=== PATIENT | male | born 1985 | race Asian ===

== ENCOUNTER 2018-01-16 21:21 | Emergency (ER) | payer OTHER ==
[2018-01-16 21:35] VITALS: BP 150/86; PULSE 81; RESP 18; TEMP 98.1
--- NOTE | 2018-01-16 21:46 | ED ---
General Adult HPI - General Chief complaint: Extremity Injury, Lower Stated complaint: fall/foot swelling Time Seen by Provider: 01/16/18 21:40 Source: patient, RN notes reviewed Mode of arrival: wheelchair Limitations: physical limitation - History of Present Illness Initial comments: Patient is a pleasant 32-year-old male presenting to the emergency Department with complaints of left foot pain. Patient was walking up steps prior to arrival. Patient fell back after he stepped wrong on the upper step. Patient had sudden pain of his left midfoot. Discomfort persists since that time. Discomfort increases with ambulation and touch and movement. No other area of injury or concern. No history of chronic foot problems. patient has noticed some swelling. - Related Data Previous Rx's Medication Instructions Recorded Acetaminophen-Codeine 300-30mg 1 each PO Q6H PRN #18 tablet 12/27/14 [Tylenol #3] Ibuprofen [Motrin] 800 mg PO Q8HR #30 tab 12/27/14 Omeprazole [PriLOSEC] 20 mg PO AC-BID #60 cap 08/06/16 Hydrocodone/Acetaminophen [Barksdale 1 each PO Q4HR PRN #15 tab 01/16/18 5-325] Allergies Allergy/AdvReac Type Severity Reaction Status Date / Time No Known Allergies Allergy Verified 12/27/14 09:44 Review of Systems ROS Statement: Those systems with pertinent positive or pertinent negative responses have been documented in the HPI. ROS Other: All systems not noted in ROS Statement are negative. Constitutional: Denies: fever Eyes: Denies: eye pain ENT: Denies: ear pain Respiratory: Denies: cough, dyspnea Cardiovascular: Denies: chest pain Gastrointestinal: Denies: abdominal pain Musculoskeletal: Denies: back pain Skin: Denies: rash Neurological: Denies: weakness Past Medical History Past Medical History: Asthma History of Any Multi-Drug Resistant Organisms: None Reported Past Surgical History: Orthopedic Surgery Additional Past Surgical History / Comment(s): Right ACL Past Psychological History: No Psychological Hx Reported Smoking Status: Current every day smoker Past Alcohol Use History: Occasional Past Drug Use History: Marijuana General Exam Limitations: physical limitation General appearance: alert, in no apparent distress Head exam: Present: atraumatic Eye exam: Present: normal appearance Neck exam: Present: normal inspection. Absent: tenderness Respiratory exam: Present: normal lung sounds bilaterally Cardiovascular Exam: Present: regular rate, normal rhythm Expanded Peripheral pulses: 2+: Posterior Tibialis (L), Dorsalis Pedis (L) GI/Abdominal exam: Present: soft. Absent: tenderness Extremities exam: Present: tenderness (Left medial midfoot with mild to moderate tenderness and mild swelling. Distally the extremity is neurovascularly intact.). Absent: calf tenderness Neurological exam: Present: alert. Absent: motor sensory deficit Psychiatric exam: Present: normal affect, normal mood Skin exam: Present: normal color Course Vital Signs 01/16/18 21:31 Temperature 98.1 F Pulse Rate 81 Respiratory 18 Rate Blood Pressure 150/86 O2 Sat by Pulse 98 Oximetry Procedures - Orthopedic Splinting/Casting Injury #1 Side: left Lower Extremity Injury Location: short leg, foot Lower Extremity Immobilizer: posterior splint Additional Comments: Examined postplacement with good alignment and neurovascularly intact. Medical Decision Making - Medical Decision Making Patient reevaluated and updated. Case was discussed in detail with Dr. Charles who does recommend computed tomography scan of the foot and follow-up with Dr. Sung in the office and splint. Patient was updated. Patient updated specifically for no weightbearing. - Radiology Data Radiology results: image reviewed (Fracture dislocation at the proximal first metatarsal) Disposition Clinical Impression: Metatarsal fracture Disposition: HOME SELF-CARE Instructions: Foot Fracture in Adults (ED) Additional Instructions: Use crutches, prescription provided. No weightbearing left foot. Follow-up tomorrow with Dr. Sung, phone number provided. Return for increased pain, swelling, foot problems, worsening symptoms or other concerns. Ice to affected area. Prescriptions: Hydrocodone/Acetaminophen [Barksdale 5-325] 1 each PO Q4HR PRN #15 tab PRN Reason: Pain Is patient prescribed a controlled substance at d/c from ED?: Yes When asked, does pt state using other controlled substances?: No Referrals: Robbi Sung MD [Medical Doctor] - 1-2 days Time of Disposition: 22:29
--- NOTE | 2018-01-16 22:00 | XR ---
PROCEDURE: XR foot complete LT 3 views DATE AND TIME: 01/16/2018 9:54 PM REFERRING PHYSICIAN: Kang Castle DO CLINICAL INDICATION: PHH, Pain after injury TECHNIQUE: Department protocol. COMPARISON: None FINDINGS: There is a fracture/dislocation involving the base of the first metatarsal at the first met atarsal-tarsal articulation. Further characterization with CT can be complimentary. IMPRESSION: Fracture/dislocation at the first MTT joint.
[2018-01-16] MEDS ORDERED: HYDROcodone/APAP 5-325MG 1 EACH TAB PO STA ×2 (22:33→22:46)
--- NOTE | 2018-01-16 22:46 | CT ---
EXAMINATION TYPE: CT foot LT wo con DATE OF EXAM: 01/16/2018 COMPARISON: NONE HISTORY: Left foot injury today. CT DLP: 256.7 mGycm Automated exposure control for dose reduction was used. FINDINGS: There is an impacted intra-articular fracture of the base of the first metatarsal. There is also an a nterior dislocation of the first tarsometatarsal joint. There is nondisplaced transverse fracture of the base of the second metatarsal. The cuneiform bones appear intact. There is significant comminutio n of the first metatarsal fracture. The hindfoot appears intact. Ankle mortise is anatomic. IMPRESSION: NONDISPLACED FRACTURE OF THE BASE OF THE SECOND METATARSAL. ANTERIOR COMMINUTED FRACTURE DISLOCATION OF THE FIRST TARSOMETATARSAL JOINT.
== END 2018-01-16 22:55 | disposition home or self-care (01) ==
LOC: EC 21:21
DX: S92.312A Displaced fracture of first metatarsal bone, left foot, initial encounter for closed fracture (principal); F17.200 Nicotine dependence, unspecified, uncomplicated; W01.0XXA Fall on same level from slipping, tripping and stumbling without subsequent striking against object, initial encounter; Y93.01 Activity, walking, marching and hiking
CPT/HCPCS: 29515; 99284

== ENCOUNTER 2018-01-30 08:42 | Day surgery (SDC) | payer OTHER ==
[2018-01-29 10:57] VITALS: BMI 25.8
[~2018-01-30 08:42] MED LIST: DEXAMETHASONE SOD PHOSPHATE 10 MG/ML 1 ML VIAL IV ONE; HYDROmorphone 0.5 MG/0.5 ML SYRINGE IVP PRN; LACTATED RINGERS 1,000 ML IV SCH; LIDOCAINE 1% 20 ML VIAL (10MG/ML) FOR IV START INTRADERMA PRN; MIDAZOLAM 2 MG/2 ML VIAL IV PRN; MORPHINE SULFATE 2 MG/ML SYRINGE IV PRN; ONDANSETRON 4 MG/2 ML VIAL IVP ONE; SCOPOLAMINE 1.5MG/72HR PATCH TRANSDERM ONE; ceFAZolin IN SWFI 2 GM/20 ML SYRINGE IVP ONE
[2018-01-30] MEDS ORDERED: SUCCINYLCHOLINE CHLORIDE 100 MG/5 ML SYR IV ONE (11:36)
[2018-01-30] MEDS ORDERED: KETAMINE 10 MG/ML 20 ML VIAL ONE (11:36)
[2018-01-30] MEDS ORDERED: PROPOFOL 10 MG/ML 20 ML VIAL IV ONE (11:36)
[2018-01-30] MEDS ORDERED: LIDOCAINE 1% INJ 10MG/ML (20 ML MDV) ONE (11:36)
[2018-01-30] MEDS ORDERED: HYDROmorphone (PF) 1 MG/ML ONE (11:36)
[2018-01-30] MEDS ORDERED: MIDAZOLAM 2 MG/2 ML VIAL ONE (11:36)
[2018-01-30] MEDS ORDERED: ALBUTEROL INHALER 60 PUFF/8 GM INHALER INHALATION ONE (11:36)
[2018-01-30] MEDS ORDERED: fentaNYL (PF) 50 MCG/ML 2 ML AMP ONE (11:36)
[2018-01-30] MEDS ORDERED: ceFAZolin 1,000 MG in SODIUM CHLORIDE 0.9% 1,000 ML IRRIGATION ONE (12:01)
[2018-01-30] MEDS ORDERED: LACTATED RINGERS 1,000 ML IV ONE (12:14)
[2018-01-30] MEDS ORDERED: hydrOXYzine PAMOATE 25 MG CAP PO PRN (13:59)
[2018-01-30] MEDS ORDERED: PROCHLORPERAZINE SUPPOSITORY 25 MG SUPP RECTAL PRN (13:59)
[2018-01-30] MEDS ORDERED: ONDANSETRON 4 MG/2 ML VIAL IVP PRN (13:59)
[2018-01-30] MEDS ORDERED: MORPHINE SULFATE 4 MG/ML SYRINGE IVP PRN ×3 (13:59)
[2018-01-30] MEDS ORDERED: TEMAZEPAM 15 MG CAP PO PRN (13:59)
[2018-01-30] MEDS ORDERED: diphenhydrAMINE 25 MG CAP PO PRN (13:59)
[2018-01-30] MEDS ORDERED: METOCLOPRAMIDE 5 MG/ML 2 ML VIAL IVP PRN (13:59)
[2018-01-30] MEDS ORDERED: LACTATED RINGERS 1,000 ML IV SCH (14:00)
[2018-01-30] MEDS ORDERED: HYDROcodone/APAP 10-325MG 1 EACH TAB PO PRN ×2 (14:01)
[2018-01-30 14:15] VITALS: RESP 16; TEMP 97.9
--- NOTE | 2018-01-30 14:39 | XR ---
Limited left foot HISTORY: Fracture, open reduction internal fixation 6 intraoperative C-arm images document the procedure.
--- NOTE | 2018-01-30 14:40 | FL ---
Fluoroscopy HISTORY: Open reduction internal fixation left ankle 1 minute 38 seconds fluoroscopy time supplied to the referring clinician. 6 intraoperative C-arm coretta ges document the procedure. See dictated report from orthopedic surgery.
[2018-01-30 15:09] VITALS: BP 148/84; PULSE 78
[2018-01-30] MEDS ORDERED: ceFAZolin IN SWFI 2 GM/20 ML SYRINGE IVP SCH (16:00)
[2018-01-30] MEDS ORDERED: ASPIRIN 325 MG TAB PO SCH (21:00)
--- NOTE | 2018-02-01 08:46 | OP ---
OPERATIVE REPORT DATE OF SURGERY: 01/30/2018 PREOPERATIVE DIAGNOSES: 1. Closed left medial column Lisfranc fracture dislocation. 2. Left first metatarsal base fracture. 3. Left second metatarsal base fracture. 4. Left medial cuneiform fracture. 5. Current everyday cigarette smoker. POSTOPERATIVE DIAGNOSES: 1. Closed left medial column Lisfranc fracture dislocation. 2. Left first metatarsal base fracture. 3. Left second metatarsal base fracture. 4. Left medial cuneiform fracture. 5. Current everyday cigarette smoker. PROCEDURE: 1. Open reduction and internal fixation of left medial column Lisfranc fracture dislocation. 2. Open reduction of first and second tarsometatarsal joint dislocation. 3. Open reduction and internal fixation of left medial cuneiform fracture. 4. Application of short-leg splint by physician. SURGEON: Dr. Robbi uSng. OPERATING ROOM REGISTERED NURSE: Raul CASTANON (Raul CASTANON was required as a skilled retail event and sales assistant due to the complexity of the case for patient positioning, surgical exposure, reduction of fracture, placement of hardware, closure of wound and application of splint). ANESTHESIA: General plus popliteal and saphenous nerve block. FLUIDS: 1000 mL crystalloid. BLOOD LOSS: Less than 10 mL. TOURNIQUET TIME: 75 minutes. INDICATION: The patient is a very pleasant 32-year-old male with a medical history significant for smoking up to 1 pack of cigarettes a day. He sustained an injury to his left foot resulting in a comminuted first metatarsal base fracture dislocation and widening of the Lisfranc joint. He had x-rays and a CT scan. I met with the patient preoperatively to discuss treatment. We discussed both open reduction and internal fixation versus a primary fusion. Due to the patient's young age and smoking status, I recommended an open reduction and internal fixation. The patient understands the potential risks for this. He understands the potential for ongoing pain, development of posttraumatic arthritis and difficulty with ambulation. We had a lengthy discussion of all the potential risks and complications including, but not limited to risk of anesthesia, risk of superficial infection, risk of deep infection, risk of delayed wound healing, risk of superficial wound necrosis, risk of fracture nonunion, risk of fracture malunion, risk of malreduction of the Lisfranc joint, risk of posttraumatic arthritis, risk of chronic pain, risk of chronic swelling, risk of inability to regain pre-injury level of function, risk of need for further surgery including a midfoot fusion, risk of DVT, risk of PE, and other less common complications. The patient voiced his understanding of all these complications and also acknowledges the risk for other less common complications. He also acknowledges that he is at a significantly higher risk of having a complication due to his current smoking status. He provided his verbal and written consent to go forward with surgery. DESCRIPTION OF PROCEDURE: The patient was identified in preoperative holding and the correct left foot was marked with my initials. I reviewed the consent form and my surgical plan with the patient, his mom and florencee. All their questions were answered. A popliteal and saphenous nerve block was placed by Anesthesia. The patient was then brought back to the operating room. He was positioned on the OR table. A general anesthetic and preoperative antibiotics were administered. The tourniquet was applied to the proximal aspect of the left thigh. All bony prominences were well padded. A bump was placed under the left buttock internally rotating the leg to neutral. The patient's left leg was then prepped and draped in the standard sterile fashion. Prior to starting surgery, a timeout was performed identifying the correct patient, operative extremity, and procedure. The patient's leg was then elevated, exsanguinated with an Esmarch bandage, and the tourniquet was inflated to 250 mmHg. I began by outlining a longitudinal incision centered over the first tarsometatarsal joint in the 1-2 intermetatarsal space. Skin incision was made with a 15 blade scalpel. Dissection was carried down carefully through the subcutaneous tissue with tenotomy scissors. Crossing veins were controlled with electrocautery. A crossing branch of the superficial peroneal nerve was identified and carefully retracted. The periosteum and capsule over the first and second tarsometatarsal joint was elevated. Immediately upon elevating the capsule, the dislocated first tarsometatarsal joint was identified. There were multiple small fragments between the base of the second metatarsal and medial cuneiform. There was also a large dorsal fracture off of the medial cuneiform. K-wires were placed medially in the first metatarsal and cuneiform. A lamina pari mutuel ticket cashier was used to help regain length and reduce the first tarsometatarsal joint. Small osteochondral fragments that were too small to secure fixation across were debrided from the joint to help facilitate reduction. Once the joint was anatomically reduced and out to length, a 0.0625 K-wire was placed peripherally from the first metatarsal base across the medial cuneiform to hold the reduction. The large dorsal medial cuneiform fracture was then debrided of early consolidating hematoma and anatomically reduced into place and held with a 0.045 K-wire. To hold this large fragment, a 2.0 mm lag screw was placed across it. A 2.0 mm drill bit was used to create a gliding hole in the dorsal cortex of the fragment and a 1.5 mm drill bit was used to create a threaded hole in the body of the medial cuneiform. A fully threaded 2.0 mm lag screw was placed across this fragment generating excellent compression and reduction. A precontoured tarsometatarsal plate was then placed dorsally over the first tarsometatarsal joint to hold the joint out to length. The plate was positioned on the bone until it sat flush. The position of the plate was verified using fluoroscopy. Once the plate was adequately positioned, it was held in place with olive tipped K-wires. Nonlocking screws were placed proximally and distally to hold the plate down to bone. I then placed locking screws both proximally and distally. Finally, the most distal nonlocking screw was changed out for a locking screw. I verified position of the hardware as well as reduction of the first tarsometatarsal joint in all views. Attention was then turned to the second metatarsal base. The second metatarsal base was debrided of loose osteochondral fragments. A large [id number] reduction clamp was placed with one claudio over the lateral base of the second metatarsal and the other claudio over the medial cuneiform. The clamp was gently tightened until the second metatarsal base appeared to be anatomically reduced within its mortise. Clinically, the joint appeared reduced. The reduction was verified with fluoroscopy. A 2.5 mm drill bit was used to create a path from the medial cortex of the medial cuneiform across the Lisfranc joint into the second metatarsal base. A fully-threaded solid 3.5 mm screw was placed. The clamp was removed and the reduction held. Final fluoroscopic images were taken including an AP, oblique and lateral view. The Lisfranc joints appeared to be reduced. The hardware appeared to be in acceptable place. The wound was then copiously irrigated. The capsule over the first tarsometatarsal joint was closed with a running 0 Vicryl. The deep subcutaneous was reapproximated using 3-0 Monocryl. The skin was closed using 3-0 nylon horizontal mattress stitches. I verified that all instrument, sponge, and sharp counts were correct. A sterile dressing consisting of Betadine-soaked Adaptic, Webril, and 4 x 4 was placed. The tourniquet was let down with the total tourniquet time of 75 minutes. Once the drapes were taken off, a well-padded bulky Castle splint was placed with the ankle in neutral. The patient was then woken from his anesthetic, transferred from the operating room table to a gurney and brought to PACU having tolerated the procedure well. PLAN: The patient is going to be strictly nonweightbearing in a splint. He was given prescriptions for pain medication, Colace, and a stool softener. If the patient's pain is adequately controlled, he can discharge home as an outpatient. He will follow up in the office in 2 weeks for splint removal, x-rays out of the splint and likely transition to a tall Cam boot or cast. MMODL / IJN: [id number] /
== END 2018-01-30 15:18 | disposition home or self-care (01) ==
LOC: OR 08:42
PROVIDERS: ATTEND Orthopaedic Surgery
DX: S93.325A Dislocation of tarsometatarsal joint of left foot, initial encounter (principal); S92.312A Displaced fracture of first metatarsal bone, left foot, initial encounter for closed fracture; S92.322A Displaced fracture of second metatarsal bone, left foot, initial encounter for closed fracture; S92.242A Displaced fracture of medial cuneiform of left foot, initial encounter for closed fracture; F17.210 Nicotine dependence, cigarettes, uncomplicated; J45.909 Unspecified asthma, uncomplicated; K21.9 Gastro-esophageal reflux disease without esophagitis; W10.9XXA Fall (on) (from) unspecified stairs and steps, initial encounter; Z88.5 Allergy status to narcotic agent; Z79.899 Other long term (current) drug therapy
CPT/HCPCS: 73630; 28485 ×4; J2250; J1100; J2405; J0690 ×2; J2001; J3010; J1170; J0330; J2704

== ENCOUNTER 2018-07-03 09:46 | Day surgery (SDC) | payer OTHER ==
[2018-06-26 16:19] VITALS: BMI 25.8
[~2018-07-03 09:46] MED LIST changes: -MORPHINE SULFATE 2 MG/ML SYRINGE IV PRN
--- NOTE | 2018-07-03 13:18 | P.ONQ ---
Anesthesiology Proc Note - PNB - Peripheral Nerve Block Performed Left Popliteal Single Time Out Performed: Yes Procedure Start Time: 11:15 Procedure Stop Time: :20 Sedation Type: Sedate with meaningful contact maintained Preparation: Sterile Prep Position: Supine Catheter: None Needle Types: Genesis Needle Size: 50mm (2") Needle Gauge: 21 Technique: Ultrasound Injectate: 0.5% Ropivacaine (see comment for volume) Blood Aspirated: No Pain Paresthesia on Injection Noted: No Resistance on Injection: Normal Events: Uneventful and Well Tolerated
[2018-07-03] MEDS ORDERED: KETOROLAC 30 MG/ML 1 ML VIAL ONE (13:50)
[2018-07-03] MEDS ORDERED: MIDAZOLAM 2 MG/2 ML VIAL ONE (13:50)
[2018-07-03] MEDS ORDERED: LIDOCAINE 1% INJ 10MG/ML (20 ML MDV) ONE (13:50)
[2018-07-03] MEDS ORDERED: ROPIVACAINE 5 MG/ML 30 ML VIAL ONE (13:50)
[2018-07-03] MEDS ORDERED: PROPOFOL 10 MG/ML 20 ML VIAL IV ONE (13:50)
[2018-07-03] MEDS ORDERED: fentaNYL (PF) 50 MCG/ML 2 ML AMP ONE (13:50)
[2018-07-03] MEDS ORDERED: LACTATED RINGERS 1,000 ML IV ONE (14:15)
[2018-07-03] MEDS ORDERED: LACTATED RINGERS 1,000 ML IV SCH (15:00)
[2018-07-03] MEDS ORDERED: HYDROcodone/APAP 5-325MG 1 EACH TAB PO PRN ×2 (15:00)
[2018-07-03] MEDS ORDERED: HYDROmorphone 0.5 MG/0.5 ML SYRINGE IVP PRN (15:00)
[2018-07-03] MEDS ORDERED: ONDANSETRON 4 MG/2 ML VIAL IVP PRN (15:00)
[2018-07-03] MEDS ORDERED: HYDROmorphone 1 MG/ML 1 ML SYRINGE IVP PRN ×2 (15:00→15:11)
[2018-07-03 15:02] VITALS: TEMP 97.3
--- NOTE | 2018-07-03 15:09 | XR ---
EXAMINATION TYPE: XR foot complete LT, FL guidance operating room DATE OF EXAM: 07/03/2018 CLINICAL HISTORY: Eructating left foot hardware. TECHNIQUE: Fluoroscopy. Limited intraoperative views left foot. COMPARISON: Intraoperative foot x-rays January 30, 2018.. FINDINGS: Fluoroscopic guidance was provided during removal of metallic surgical hardware procedure performed by Dr. Sung. A total of 11 seconds of fluoroscopic time was utilized during the proced ure and 3 spot fluoroscopic intraoperative images are acquired. Images acquired show removal of dorsa l fixating plate and fixating screws there are first toe with 2 residual screw fragments in the media l or middle cuneiform. IMPRESSION: As Above.
[2018-07-03 15:51] VITALS: PULSE 57
[2018-07-03 16:04] VITALS: BP 132/82; RESP 18
--- NOTE | 2018-07-03 17:56 | OP ---
OPERATIVE REPORT DATE OF SURGERY: 07/03/2018 PREOPERATIVE DIAGNOSES: 1. Left medial column Lisfranc injury, status post open reduction, internal fixation. 2. History of everyday cigarette smoker. POSTOPERATIVE DIAGNOSES: 1. Left medial column Lisfranc injury, status post open reduction, internal fixation. 2. History of everyday cigarette smoker. PROCEDURE: 1. Left foot hardware removal, deep. 2. Manual application of stress by physician, left foot. SURGEON: Dr. Robbi Sung BANKING SUPERVISOR: None. ANESTHESIA: General plus popliteal and saphenous nerve block. FLUIDS: 700 mL crystalloid. BLOOD LOSS: 10 mL. TOURNIQUET TIME: 24 minutes. INDICATION: The patient is a very pleasant 32-year-old male who sustained a medial column Lisfranc injury with a fracture dislocation of the first tarsometatarsal joint. He previously underwent open reduction, internal fixation. The patient had both clinical and radiographic evidence of healing. He broke several of his screws. We discussed removing the hardware. He agreed to this and requested hardware removal. We discussed the potential risks and complications of surgery, including but not limited to risk of anesthesia, risk of superficial infection, risk of deep infection, risk of damage to local blood vessels or nerves, risk of post-traumatic arthritis, risk of postoperative displacement requiring further surgery, including a midfoot fusion, risk of chronic pain, risk of chronic swelling, risk of an inability to regain pre-injury level of function, risk of damage to local blood vessels or nerves, risk of DVT, risk of PE, risk of other medical complications and possibly loss of life or limb. The patient voiced his understanding of this and also acknowledged the fact that there are other less common complications possible. He provided his verbal and written consent to go forward with surgery. DESCRIPTION OF THE PROCEDURE: The patient was identified in Preoperative Holding and the correct left foot was marked with my initials. I reviewed the consent form with the patient and his significant other. All of their questions were answered. The patient was given a popliteal and saphenous nerve block by Anesthesia. He was brought back to the operating room. He was positioned on the OR table, where a general anesthetic and preoperative antibiotics were administered. A tourniquet was applied to the proximal aspect of the left thigh. A bump was placed under the left buttock internally rotating the leg to neutral. The right leg was secured to the table with foam and tape. The left leg was then prepped and draped in standard sterile fashion. Prior to starting surgery, timeout was performed identifying the correct patient, operative extremity and procedure. The patient's leg was then elevated, exsanguinated with an Esmarch bandage and the tourniquet was inflated to 250 mmHg. I began by outlining the scar in the first interspace. Skin incision was made with a scalpel and dissection was carried down carefully through the subcutaneous tissue with tenotomy scissors. The EHL tendon sheath was identified and incised. The EHL tendon was then retracted medially. I immediately came down on the dorsal plate and screws. The plate was circumferentially exposed and the hardware was then removed. Two of the screws were broken. I then removed the home-run Lisfranc screw and the small fragment screw in the medial cuneiform. Final fluoroscopic images were taken, including a true AP, oblique and lateral view of the foot. A manual abduction stress x-ray was performed of the mid foot and showed no instability of the first tarsometatarsal joint or of the Lisfranc ligament. The wound was copiously irrigated and closed in layers. The tourniquet was let down. A sterile dressing consisting of Betadine-soaked Adaptic, 4 x 4 and Webril was applied. The patient was then placed in a boot. He was woken from his anesthetic and transferred to the PACU, having tolerated the procedure well. DEREK / JEAN: [id number] /
== END 2018-07-03 16:20 | disposition home or self-care (01) ==
LOC: OR 09:46
PROVIDERS: ATTEND Orthopaedic Surgery
DX: T84.84XA Pain due to internal orthopedic prosthetic devices, implants and grafts, initial encounter (principal); Z48.89 Encounter for other specified surgical aftercare; S93.326A Dislocation of tarsometatarsal joint of unspecified foot, initial encounter; F17.210 Nicotine dependence, cigarettes, uncomplicated; J45.909 Unspecified asthma, uncomplicated; K21.9 Gastro-esophageal reflux disease without esophagitis; Z79.891 Long term (current) use of opiate analgesic; Z79.1 Long term (current) use of non-steroidal anti-inflammatories (NSAID); Z79.899 Other long term (current) drug therapy; Z88.5 Allergy status to narcotic agent
CPT/HCPCS: 73630; 20680; J2250; J1100; J2405; J2001; J3010; J1885; J2795; J2704; J0690

== ENCOUNTER 2019-08-04 08:01 | Emergency (ER) | payer OTHER ==
[2019-08-04 08:08] VITALS: TEMP 97.9
[2019-08-04] MEDS ORDERED: KETOROLAC 30 MG/ML 1 ML VIAL IVP STA (08:15)
[2019-08-04] MEDS ORDERED: ONDANSETRON 4 MG/2 ML VIAL IVP STA (08:15)
--- NOTE | 2019-08-04 08:17 | ED ---
General Adult HPI - General Chief complaint: Abdominal Pain Stated complaint: Flank/back pain Time Seen by Provider: 08/04/19 08:11 Source: patient Mode of arrival: ambulatory Limitations: no limitations - History of Present Illness Initial comments: 34-year-old male yo male with no significant past medical history presenting to the emergency department for chief complaint of left-sided flank pain that radiates towards the left groin. Patient states that he has left flank pain that began this morning. He states it radiates towards her groin. He states it fluctuates in intensity and becomes very severe and sharp. Patient denies known history of kidney stones. He denies noting any hematuria. Patient denies fever abdominal pain. Patient states as a dull ache in the left testicle he states however the pain does not originate there is mostly in the left flank. Patient states the testicles are not tender to touch. Denies abx allergies or other complaints. Patient appears uncomfortable upon arrival holding the left flank. - Related Data Home Medications Medication Instructions Recorded Confirmed Albuterol Inhaler [Ventolin Hfa 1 - 2 puff INHALATION RT-Q6H PRN 01/29/18 07/03/18 Inhaler] Ibuprofen [Motrin] 800 mg PO Q8HR PRN 01/29/18 06/26/18 Previous Rx's Medication Instructions Recorded Omeprazole [PriLOSEC] 20 mg PO AC-BID #60 cap 08/06/16 Aspirin 325 mg PO BID #28 tab 07/03/18 Ketorolac [Toradol] 10 mg PO Q8HR PRN 3 Days #9 tab 08/04/19 Ondansetron Odt [Zofran Odt] 4 mg PO Q8HR PRN 5 Days #15 tab 08/04/19 Allergies Allergy/AdvReac Type Severity Reaction Status Date / Time tramadol Allergy SEIZURE Verified 08/04/19 08:06 Review of Systems ROS Statement: Those systems with pertinent positive or pertinent negative responses have been documented in the HPI. ROS Other: All systems not noted in ROS Statement are negative. Past Medical History Past Medical History: Asthma, GERD/Reflux Additional Past Medical History / Comment(s): FRACTURE OF LEFT FOOT History of Any Multi-Drug Resistant Organisms: None Reported Past Surgical History: Orthopedic Surgery Additional Past Surgical History / Comment(s): Right ACL, left foot, egd for "food stuck" Past Anesthesia/Blood Transfusion Reactions: No Reported Reaction Past Psychological History: No Psychological Hx Reported Smoking Status: Current every day smoker Past Alcohol Use History: Rare Past Drug Use History: Marijuana - Past Family History Mother Family Medical History: No Reported History General Exam - General Exam Comments Initial Comments: General: The patient is awake and alert, grabbing left flank in discomfort Eye: Pupils are equal, round and reactive to light, extra-ocular movements are intact. No nystagmus. There is normal conjunctiva bilaterally. No signs of icterus. Cardiovascular: There is a regular rate and rhythm. No murmur, rub or gallop is appreciated. Respiratory: Lungs are clear to auscultation, respirations are non-labored, breath sounds are equal. No wheezes, stridor, rales, or rhonchi. Gastrointestinal: Soft, non-distended, non-tender abdomen without masses or organomegaly noted. There is no rebound or guarding present. No CVA tenderness. Bowel sounds are unremarkable. Musculoskeletal: Normal ROM, no tenderness. Strength 5/5. Sensation intact. Radial pulses equal bilaterally 2+. Neurological: A&O x 3. CN II-XII intact grossly, There are no obvious motor or sensory deficits. Coordination appears grossly intact. Speech is normal. Skin: Skin is warm and dry and no rashes or lesions are noted. Psychiatric: Cooperative, appropriate mood & affect, normal judgment. Limitations: no limitations Course Vital Signs 08/04/19 08/04/19 08:06 09:32 Temperature 97.9 F Pulse Rate 90 80 Respiratory 18 16 Rate Blood Pressure 150/75 150/70 O2 Sat by Pulse 99 98 Oximetry - Reevaluation(s) Reevaluation #1: after administration of Toradol patient states the pain is resolved. 08/04/19 09:00 Medical Decision Making - Medical Decision Making 34-year-old male presents for chief complaint of left flank pain. His family history of kidney stones. CT revealed multiple right-sided nephrolithiasis. patient has no hydronephrosis however hematuria was present. Patient states he did feel slightly better prior to Toradol administration after he had urinated. Possibility of passed stone. Given complete resolution of patient's symptoms I feel that most secondary diagnosis is kidney stone. Patient has a benign abdominal exam. Denies any testicular pain. Return parameters importance of urology. With discussed and patient was discharged appearing well after discussing case with attending provider - Lab Data Result diagrams: 08/04/19 08:30 08/04/19 08:30 Lab Results 08/04/19 08/04/19 08/04/19 Range/Units 08:30 08:30 08:30 WBC 6.0 (3.8-10.6) k/uL RBC 5.08 (4.30-5.90) m/uL Hgb 15.9 (13.0-17.5) gm/dL Hct 43.8 (39.0-53.0) % MCV 86.2 (80.0-100.0) fL MCH 31.2 (25.0-35.0) pg MCHC 36.2 (31.0-37.0) g/dL RDW 12.3 (11.5-15.5) % Plt Count 260 (150-450) k/uL Neutrophils % 42 % Lymphocytes % 37 % Monocytes % 10 % Eosinophils % 8 % Basophils % 1 % Neutrophils # 2.5 (1.3-7.7) k/uL Lymphocytes # 2.2 (1.0-4.8) k/uL Monocytes # 0.6 (0-1.0) k/uL Eosinophils # 0.5 (0-0.7) k/uL Basophils # 0.1 (0-0.2) k/uL Sodium 140 (137-145) mmol/L Potassium 3.8 (3.5-5.1) mmol/L Chloride 110 H (98-107) mmol/L Carbon Dioxide 20 L (22-30) mmol/L Anion Gap 10 mmol/L BUN 11 (9-20) mg/dL Creatinine 0.82 (0.66-1.25) mg/dL Est GFR (CKD-EPI)AfAm >90 (>60 ml/min/1.73 sqM) Est GFR (CKD-EPI)NonAf >90 (>60 ml/min/1.73 sqM) Glucose 125 H (74-99) mg/dL Calcium 9.3 (8.4-10.2) mg/dL Total Bilirubin 0.8 (0.2-1.3) mg/dL AST 29 (17-59) U/L ALT 46 (21-72) U/L Alkaline Phosphatase 67 (38-126) U/L Total Protein 7.0 (6.3-8.2) g/dL Albumin 3.9 (3.5-5.0) g/dL Urine Color Yellow Urine Appearance Clear (Clear) Urine pH 6.0 (5.0-8.0) Ur Specific [place] 1.013 (1.001-1.035) Urine Protein Negative (Negative) Urine Glucose (UA) Negative (Negative) Urine Ketones Negative (Negative) Urine Blood Moderate H (Negative) Urine Nitrite Negative (Negative) Urine Bilirubin Negative (Negative) Urine Urobilinogen <2.0 (<2.0) mg/dL Ur Leukocyte Esterase Negative (Negative) Urine RBC 20 H (0-5) /hpf Urine WBC 5 (0-5) /hpf Urine Bacteria Rare H (None) /hpf Disposition Clinical Impression: Hematuria, Left flank pain Disposition: HOME SELF-CARE Condition: Good Instructions (If sedation given, give patient instructions): Kidney Stones (ED) Additional Instructions: Please use medication as discussed. Please follow-up with family doctor in the next 2 days, urology in next week. Please return to emergency room if the symptoms increase or worsen or for any other concerns. Prescriptions: Ketorolac [Toradol] 10 mg PO Q8HR PRN 3 Days #9 tab PRN Reason: Severe Pain Ondansetron Odt [Zofran Odt] 4 mg PO Q8HR PRN 5 Days #15 tab PRN Reason: Nausea Is patient prescribed a controlled substance at d/c from ED?: No Referrals: None,Stated [Primary Care Provider] - 1-2 days Junior Gutierrez MD [STAFF PHYSICIAN] - As Soon As Possible Time of Disposition: 09:30
[2019-08-04 09:02] LABS: Appearance,Urine Clear (Clear); Bilirubin,Urine Negative (Negative); Blood,Urine Moderate (Negative); Color,Urine Yellow; Glucose,Urine (UA) Negative (Negative); Ketones,Urine Negative (Negative); Leukocyte Esterase,Urine Negative (Negative); Nitrite,Urine Negative (Negative); Protein,Urine Negative (Negative); Specific Gravity,Urine 1.013 (1.001-1.035); Urobilinogen,Urine <2.0 mg/dL (<2.0)
[2019-08-04 09:06] LABS: Albumin 3.9 g/dL (3.5-5.0); Chloride 110 mmol/L (98-107); Glucose 125 mg/dL (74-99); Potassium 3.8 mmol/L (3.5-5.1); Sodium 140 mmol/L (137-145)
[2019-08-04 09:07] LABS: ALT 46 U/L (21-72); AST 29 U/L (17-59); African American GFR (CKD) >90 (>60 ml/min/1.73 sqM); Alkaline Phosphatase 67 U/L (38-126); Anion Gap 10 mmol/L; Blood Urea Nitrogen 11 mg/dL (9-20); Calcium 9.3 mg/dL (8.4-10.2); Carbon Dioxide 20 mmol/L (22-30); Non-African American GFR(CKD) >90 (>60 ml/min/1.73 sqM); Total Bilirubin 0.8 mg/dL (0.2-1.3)
[2019-08-04 09:11] LABS: Basophils # (A) 0.1 k/uL (0-0.2); Basophils % (A) 1 %; Eosinophils # (A) 0.5 k/uL (0-0.7); Eosinophils % (A) 8 %; HCT 43.8 % (39.0-53.0); HGB 15.9 gm/dL (13.0-17.5); Lymphocytes # (A) 2.2 k/uL (1.0-4.8); Lymphocytes % (A) 37 %; MCH 31.2 pg (25.0-35.0); MCHC 36.2 g/dL (31.0-37.0); MCV 86.2 fL (80.0-100.0); Mean Platelet Volume 6.5; Monocytes # (A) 0.6 k/uL (0-1.0); Monocytes % (A) 10 %; Neutrophils # (A) 2.5 k/uL (1.3-7.7); Neutrophils % (A) 42 %; Platelet Count 260 k/uL (150-450); RBC 5.08 m/uL (4.30-5.90); RDW 12.3 % (11.5-15.5)
--- NOTE | 2019-08-04 09:26 | CT ---
EXAMINATION TYPE: CT abdomen pelvis wo con DATE OF EXAM: 08/04/2019 COMPARISON: None HISTORY: Left sided pain CT DLP: 433.7 mGycm Automated exposure control for dose reduction was used. TECHNIQUE: Helical acquisition of images was performed from the lung bases through the pelvis. FINDINGS: LUNG BASES: Millimeters solid pulmonary nodule seen in the anterior left lower lobe on series 204 coretta ge 111. Linear possible pleural parenchymal scarring versus 3 mm pleural-based nodule is seen on imag e 20 in the right lower lobe laterally. LIVER/GB: Liver is slightly enlarged extending to the iliac crest. No CT evidence of hepatic steatosi s. Unenhanced attenuation is within normal limits. PANCREAS: No ductal dilatation seen. SPLEEN: No splenomegaly. ADRENALS: No significant abnormality is seen. KIDNEYS: 1 mm nonobstructing right midpole calculus is seen on image 56. Additional 1 mm right lower pole calculus is also seen on the right on image 65. Few clustered (approximately 3 in #1 mm calculi in the right upper pole on image 45 and 44. Punctate phlebolith is seen lateral to the left ureterove sicular junction and prostate gland calcification centrally. No calculus along the course of the left ureter is seen. No urinary bladder calculi. FREE AIR: No free air is visualized ADENOPATHY: Limited evaluation for adenopathy given the lack of intravenous and oral contrast. No gr ossly abnormal greater than 1 cm short axis lymph node is seen in the abdomen or pelvis. OSSEOUS STRUCTURES: No significant abnormality is seen. BOWEL: Appendix is air-filled and retrocecal, within normal limits of size. No periappendiceal fat s tranding. Moderate degree colonic fecal stasis. No dilated large or small bowel. Some high density wi thin the transverse and descending colon relates to ingested substance. IMPRESSION: 1. MULTIPLE NONOBSTRUCTING PUNCTATE RIGHT RENAL CALCULI. NO LEFT-SIDED RENAL CALCULI NOR OBSTRUCTIVE UROPATHY SEEN. 2. MODERATE DEGREE COLONIC FECAL STASIS. THERE IS SOMEWHAT SUBOPTIMAL EVALUATION OF THE DISTAL BOWEL GIVEN PAUCITY OF INTRA-ABDOMINAL FAT AND LACK OF ORAL CONTRAST HOWEVER NO GROSS EVIDENCE OF COLITIS N OR BOWEL OBSTRUCTION IS SEEN.
[2019-08-04 09:34] VITALS: BP 150/70; PULSE 80; RESP 16
[2019-08-04 09:41] LABS: Bacteria,Urine Rare /hpf; RBC,Urine 20 /hpf (0-5); WBC,Urine 5 /hpf (0-5)
== END 2019-08-04 09:36 | disposition home or self-care (01) ==
LOC: EC 08:01
DX: R10.32 Left lower quadrant pain (principal); R31.9 Hematuria, unspecified; N20.0 Calculus of kidney; N50.812 Left testicular pain; J45.909 Unspecified asthma, uncomplicated; F17.200 Nicotine dependence, unspecified, uncomplicated; Z88.5 Allergy status to narcotic agent; Z79.899 Other long term (current) drug therapy; Z84.1 Family history of disorders of kidney and ureter
CPT/HCPCS: 36415; 80053; 85025; 81001; 74176; 99284; 96374; 96375; J2405; J1885

== ENCOUNTER 2020-04-20 17:41 | Emergency (ER) | payer OTHER ==
[2020-04-20 17:51] VITALS: BP 150/85; PULSE 97; RESP 21; TEMP 97.9
--- NOTE | 2020-04-20 18:00 | ED ---
Medical Clearance HPI - General Chief complaint: Medical Clearance Stated complaint: Clearance Time Seen by Provider: 04/20/20 17:52 Source: police, RN notes reviewed Mode of arrival: ambulatory - History of Present Illness Initial comments: 34-year-old male presents emergency Department with police for retirement clearance. Patient reportedly took have Vicodin, methamphetamine use yesterday, Adderall use. Patient no physical complaints. Patient is awake alert and orientated. Patient denies any IV drug use denies any alcohol use today. Patient has no physical trauma. Home medications: Home Medications Medication Instructions Recorded Confirmed Albuterol Inhaler (Mhu) [Ventolin 1 - 2 puff INHALATION RT-Q6H PRN 01/29/18 07/03/18 Hfa Inhaler] Ibuprofen [Motrin] 800 mg PO Q8HR PRN 01/29/18 06/26/18 Previous Rx's Medication Instructions Recorded Omeprazole [PriLOSEC] 20 mg PO AC-BID #60 cap 08/06/16 Aspirin 325 mg PO BID #28 tab 07/03/18 Ketorolac [Toradol] 10 mg PO Q8HR PRN 3 Days #9 tab 08/04/19 Ondansetron Odt [Zofran Odt] 4 mg PO Q8HR PRN 5 Days #15 tab 08/04/19 Allergies/Adverse reactions: Allergies Allergy/AdvReac Type Severity Reaction Status Date / Time tramadol Allergy SEIZURE Verified 08/04/19 08:06 Review of Systems ROS Statement: Those systems with pertinent positive or pertinent negative responses have been documented in the HPI. ROS Other: All systems not noted in ROS Statement are negative. Past Medical History Past Medical History: Asthma, GERD/Reflux Additional Past Medical History / Comment(s): FRACTURE OF LEFT FOOT History of Any Multi-Drug Resistant Organisms: None Reported Past Surgical History: Orthopedic Surgery Additional Past Surgical History / Comment(s): Right ACL, left foot, egd for "food stuck" Past Anesthesia/Blood Transfusion Reactions: No Reported Reaction Past Psychological History: No Psychological Hx Reported Smoking Status: Current every day smoker Past Alcohol Use History: Rare Past Drug Use History: Marijuana, Methamphetamine, Opiates - Past Family History Mother Family Medical History: No Reported History General Exam Limitations: no limitations General appearance: alert, in no apparent distress Head exam: Present: atraumatic, normocephalic, normal inspection Eye exam: Present: normal appearance, PERRL, EOMI. Absent: scleral icterus, conjunctival injection, periorbital swelling ENT exam: Present: mucous membranes moist, TM's normal bilaterally, normal external ear exam. Absent: normal exam, normal oropharynx (Edentulous) Neck exam: Present: normal inspection, full ROM. Absent: tenderness, meningismus, lymphadenopathy Respiratory exam: Present: normal lung sounds bilaterally. Absent: respiratory distress, wheezes, rales, rhonchi, stridor Cardiovascular Exam: Present: regular rate, normal rhythm, normal heart sounds. Absent: systolic murmur, diastolic murmur, rubs, gallop, clicks Neurological exam: Present: alert, oriented X3, CN II-XII intact Skin exam: Present: warm, dry, intact, normal color. Absent: rash Course Vital Signs 04/20/20 17:48 Temperature 97.9 F Pulse Rate 97 Respiratory 21 Rate Blood Pressure 150/85 O2 Sat by Pulse 97 Oximetry Medical Decision Making - Medical Decision Making 34-year-old male presented for retirement clearance he is awake alert and oriented is no signs distress vitals are stable he did admit to drug use though he is not lethargic or obtunded at this time. Patient will be discharged to police custody. Disposition Clinical Impression: Medical clearance for incarceration Disposition: HOME SELF-CARE Condition: Stable Instructions (If sedation given, give patient instructions): Medical Clearance for Substance Abuse Treatment (ED) Additional Instructions: Please return to the Emergency Department if symptoms worsen or any other concerns. Is patient prescribed a controlled substance at d/c from ED?: No Referrals: Eder Ruggiero MD [Primary Care Provider] - 1-2 days Time of Disposition: 18:00
== END 2020-04-20 18:10 | disposition home or self-care (01) ==
LOC: EC 17:41
DX: Z00.8 Encounter for other general examination (principal); J45.909 Unspecified asthma, uncomplicated; F17.200 Nicotine dependence, unspecified, uncomplicated; Z88.5 Allergy status to narcotic agent
CPT/HCPCS: 99283

== ENCOUNTER → 2020-06-09 | Outpatient (CLI) | payer OTHER ==
--- NOTE | 2020-06-10 09:27 | CT ---
EXAMINATION TYPE: CT chest wo con DATE OF EXAM: 06/09/2020 COMPARISON: None HISTORY: Lung nodule CT DLP: 168.2 mGycm, Automated exposure control for dose reduction was used. CONTRAST: Performed injected with 0 mL of Isovue 300. TECHNIQUE: Axial images were obtained at 5 mm thick sections. Reconstructed images are reviewed on [employer] computer in the coronal plane. FINDINGS: Portion of the thyroid visualized is normal. There is a 0.4 cm nodule in the periphery of the left lower lobe. Series 4 image 48. There is a small linear opacity measuring 0.3 cm in width extending to the peripheral margin of the right lower lobe. Series 4 image 45. No enlarged mediastinal or hilar adenopathy is evident. The ascending aorta diameter at the level o f the main pulmonary artery is 3.1 cm. The main pulmonary artery diameter at the bifurcation is 2.[address] sections are obtained through the upper abdomen. Abdomen is essentially unremarkable. IMPRESSIONS: 1. Stable 0.4 cm nodule left lower lobe. Linear opacity at the right lung base likewise appears stabl e. Follow-up CT chest exam in one year is recommended.
== END | disposition home or self-care (01) ==
LOC: RADCTMAIN 11:30
PROVIDERS: ATTEND Internal Medicine Sleep Medicine
DX: R91.1 Solitary pulmonary nodule (principal)
CPT/HCPCS: 71250

== ENCOUNTER 2020-09-27 22:26 | Emergency (ER) | payer OTHER ==
[2020-09-27 22:37] VITALS: BP 152/95; PULSE 110; RESP 18; TEMP 98.5
--- NOTE | 2020-09-27 22:58 | ED ---
Psych HPI - General Chief Complaint: Psychiatric Symptoms Stated Complaint: Mental health Time Seen by Provider: 09/27/20 22:36 Source: patient, RN notes reviewed, old records reviewed Mode of arrival: ambulatory - History of Present Illness Initial Comments: This is a 35-year-old male DF for evaluation patient has a for suicidal evaluation psychiatric illness secondary to recent stressor, breakup. Denying drug or alcohol. Patient does have some history of psychiatric illness, patient until follow-up depression and grief. MD Complaint: suicidal ideation, feels depressed -: days(s) Associated Psychiatric Symptoms: depression, suicidal ideation History of same: Yes Quality: constant Improves With: none Worsens With: none Associated Symptoms: denies other symptoms Treatments Prior to Arrival: none If Self Harm: admits thoughts of self harm - Related Data Home Medications Medication Instructions Recorded Confirmed Escitalopram Oxalate [Lexapro] 10 mg PO DAILY 09/27/20 09/27/20 Allergies Allergy/AdvReac Type Severity Reaction Status Date / Time tramadol Allergy SEIZURE Verified 09/27/20 23:32 Review of Systems ROS Statement: Those systems with pertinent positive or pertinent negative responses have been documented in the HPI. ROS Other: All systems not noted in ROS Statement are negative. Past Medical History Past Medical History: Asthma, GERD/Reflux Additional Past Medical History / Comment(s): FRACTURE OF LEFT FOOT History of Any Multi-Drug Resistant Organisms: None Reported Past Surgical History: Orthopedic Surgery Additional Past Surgical History / Comment(s): Right ACL, left foot, egd for "food stuck" Past Anesthesia/Blood Transfusion Reactions: No Reported Reaction Past Psychological History: No Psychological Hx Reported Smoking Status: Current every day smoker Past Alcohol Use History: Rare Past Drug Use History: Marijuana, Methamphetamine, Opiates - Past Family History Mother Family Medical History: No Reported History General Exam Limitations: no limitations General appearance: alert, in no apparent distress Head exam: Present: atraumatic, normocephalic, normal inspection Eye exam: Present: normal appearance, PERRL, EOMI. Absent: scleral icterus, conjunctival injection, periorbital swelling ENT exam: Present: normal exam, mucous membranes moist Neck exam: Present: normal inspection. Absent: tenderness, meningismus, lymphadenopathy Respiratory exam: Present: normal lung sounds bilaterally. Absent: respiratory distress, wheezes, rales, rhonchi, stridor Cardiovascular Exam: Present: regular rate, normal rhythm, normal heart sounds. Absent: systolic murmur, diastolic murmur, rubs, gallop, clicks GI/Abdominal exam: Present: soft, normal bowel sounds. Absent: distended, tenderness, guarding, rebound, rigid Extremities exam: Present: normal inspection, full ROM, normal capillary refill. Absent: tenderness, pedal edema, joint swelling, calf tenderness Back exam: Present: normal inspection Neurological exam: Present: alert, oriented X3, CN II-XII intact Psychiatric exam: Present: normal affect, normal mood Skin exam: Present: warm, dry, intact, normal color. Absent: rash Course Vital Signs 09/27/20 22:30 Temperature 98.5 F Pulse Rate 110 H Respiratory 18 Rate Blood Pressure 152/95 O2 Sat by Pulse 98 Oximetry - Reevaluation(s) Reevaluation #1: 09/28/20 01:35 Medical record is reviewed Medically clear for psychiatric evaluation Reevaluation #2: 09/28/20 01:36 Patient seen eval by psychiatry dequan for discharge home it is safety plan Medical Decision Making - Medical Decision Making Lasix male for grief reaction stress reaction secondary to recent breakup. Patient does consent safety and can be discharged home - Lab Data Lab Results 09/27/20 Range/Units 23:10 Urine Color Light Yellow Urine Appearance Clear (Clear) Urine pH 6.0 (5.0-8.0) Ur Specific [place] 1.003 (1.001-1.035) Urine Protein Negative (Negative) Urine Glucose (UA) Negative (Negative) Urine Ketones Negative (Negative) Urine Blood Negative (Negative) Urine Nitrite Negative (Negative) Urine Bilirubin Negative (Negative) Urine Urobilinogen <2.0 (<2.0) mg/dL Ur Leukocyte Esterase Negative (Negative) Urine Opiates Screen Not Detected (NotDetected) Ur Oxycodone Screen Not Detected (NotDetected) Urine Methadone Screen Not Detected (NotDetected) Ur Propoxyphene Screen Not Detected (NotDetected) Ur Barbiturates Screen Not Detected (NotDetected) U Tricyclic Antidepress Not Detected (NotDetected) Ur Phencyclidine Scrn Not Detected (NotDetected) Ur Amphetamines Screen Detected H (NotDetected) U Methamphetamines Scrn Detected H (NotDetected) U Benzodiazepines Scrn Not Detected (NotDetected) Urine Cocaine Screen Not Detected (NotDetected) U Marijuana (THC) Screen Not Detected (NotDetected) Disposition Clinical Impression: Suicidal ideation, Depression, Grief Disposition: ADMITTED IP TO THIS HOSP Condition: Fair Instructions (If sedation given, give patient instructions): Grief and Loss (ED) Is patient prescribed a controlled substance at d/c from ED?: No Referrals: Eder Ruggiero MD [Primary Care Provider] - 1-2 days
[2020-09-27 23:46] LABS: Appearance,Urine Clear (Clear); Bilirubin,Urine Negative (Negative); Blood,Urine Negative (Negative); Color,Urine Light Yellow; Glucose,Urine (UA) Negative (Negative); Ketones,Urine Negative (Negative); Leukocyte Esterase,Urine Negative (Negative); Nitrite,Urine Negative (Negative); Protein,Urine Negative (Negative); Specific Gravity,Urine 1.003 (1.001-1.035); Urobilinogen,Urine <2.0 mg/dL (<2.0)
[2020-09-28] LABS: Amphetamine Screen,Urine Detected (NotDetected); Barbiturate Screen,Urine Not Detected (NotDetected); Benzodiazepines Screen,Urine Not Detected (NotDetected); Cocaine Screen,Urine Not Detected (NotDetected); Methadone Screen, Urine Not Detected (NotDetected); Opiate Screen,Urine Not Detected (NotDetected); Oxycodone Screen, Urine Not Detected (NotDetected); Phencyclidine Screen,Urine Not Detected (NotDetected); Tricyclic Antidepressant,Urine Not Detected (NotDetected); Urn Cannabinoid Scrn Not Detected (NotDetected)
== END 2020-09-28 01:48 | disposition other institution (70) ==
LOC: EC 22:26
DX: F43.21 Adjustment disorder with depressed mood (principal); F32.9 Major depressive disorder, single episode, unspecified; F17.200 Nicotine dependence, unspecified, uncomplicated; Z88.6 Allergy status to analgesic agent
CPT/HCPCS: 80306; 81003; 82075; 99285

== ENCOUNTER 2020-11-04 06:51 | Emergency (ER) | payer OTHER ==
[2020-11-04 06:56] VITALS: BP 134/75; PULSE 115; RESP 20; TEMP 97.9
--- NOTE | 2020-11-04 07:22 | ED ---
General Adult HPI - General Chief complaint: Anxiety Stated complaint: Anxiety Time Seen by Provider: 11/04/20 06:56 Source: patient, RN notes reviewed Mode of arrival: ambulatory Limitations: no limitations - History of Present Illness Initial comments: 35-year-old male with a past medical history of asthma, GERD presents to the emergency room for a chief complaint of anxiety. Patient states that in the past 6 months he has had a lot of changes in his life. States that he got in trouble with the law and his fianc broke up with him. Patient states that he has been started on Lexapro by his primary care provider and this has been increased and it has been helping immensely. Patient reports that he does counseling at [facility]. Patient states that this morning he started to have a panic attack. Started feeling his heart race and felt dizzy. This made him even more anxious obviously. His mom wanted him to come to the hospital. Patient states on his walk over he felt much better. States panic attack has subsided. He feels relaxed now and is ready to go to work at the [employer]. States he likes going to work and this will help him as well. Patient denies any thoughts of harming himself or suicide. States he has a 12-year-old son that needs him.Patient has no other complaints at this time including shortness of breath, chest pain, abdominal pain, nausea or vomiting, headache, or visual changes. - Related Data Home Medications Medication Instructions Recorded Confirmed Escitalopram Oxalate [Lexapro] 10 mg PO DAILY 09/27/20 09/27/20 Allergies Allergy/AdvReac Type Severity Reaction Status Date / Time tramadol Allergy SEIZURE Verified 11/04/20 06:56 Review of Systems ROS Statement: Those systems with pertinent positive or pertinent negative responses have been documented in the HPI. ROS Other: All systems not noted in ROS Statement are negative. Past Medical History Past Medical History: Asthma, GERD/Reflux Additional Past Medical History / Comment(s): FRACTURE OF LEFT FOOT History of Any Multi-Drug Resistant Organisms: None Reported Past Surgical History: Orthopedic Surgery Additional Past Surgical History / Comment(s): Right ACL, left foot, egd for "food stuck" Past Anesthesia/Blood Transfusion Reactions: No Reported Reaction Past Psychological History: No Psychological Hx Reported Smoking Status: Current every day smoker Past Alcohol Use History: Rare Past Drug Use History: Marijuana, Methamphetamine, Opiates - Past Family History Mother Family Medical History: No Reported History General Exam Limitations: no limitations General appearance: alert, in no apparent distress Head exam: Present: atraumatic, normocephalic, normal inspection Eye exam: Present: normal appearance, PERRL, EOMI. Absent: scleral icterus ENT exam: Present: normal exam, mucous membranes moist Neck exam: Present: normal inspection, full ROM. Absent: tenderness Respiratory exam: Present: normal lung sounds bilaterally. Absent: respiratory distress, wheezes Cardiovascular Exam: Present: regular rate, normal rhythm, normal heart sounds GI/Abdominal exam: Present: soft, normal bowel sounds. Absent: distended, tenderness Neurological exam: Present: alert Course Vital Signs 11/04/20 06:54 Temperature 97.9 F Pulse Rate 115 H Respiratory 20 Rate Blood Pressure 134/75 O2 Sat by Pulse 96 Oximetry Medical Decision Making - Medical Decision Making Vitals are stable. Patient sightly tachycardic likely secondary to anxiety as he is fidgeting. Patient states his anxiety however has significantly improved since his walk to the hospital. She states he only came because he was having a panic attack however that has completely resolved. He said once he got here he thought he might as well get his vitals checked but wants to be discharged to go to work. States he enjoys his job. States he has a counseling appointment at 1. Adamantly denies any suicidal or homicidal thoughts. He will follow up with his primary care provider. He will return here for any worsening symptoms. Disposition Clinical Impression: Acute anxiety Disposition: HOME SELF-CARE Condition: Good Instructions (If sedation given, give patient instructions): Generalized Anxiety Disorder (ED) Additional Instructions: Please attend your counseling appointment at 1. Please follow up with primary care in 1-2 days. Continue to take your medications. Return to the emergency room for any worsening symptoms. Is patient prescribed a controlled substance at d/c from ED?: No Referrals: Eder Ruggiero MD [Primary Care Provider] - 1-2 days Time of Disposition: 07:30
== END 2020-11-04 07:40 | disposition home or self-care (01) ==
LOC: EC 06:51
DX: F41.9 Anxiety disorder, unspecified (principal); F17.200 Nicotine dependence, unspecified, uncomplicated; Z79.899 Other long term (current) drug therapy; Z88.5 Allergy status to narcotic agent
CPT/HCPCS: 99283

== ENCOUNTER 2020-11-06 22:28 | Emergency (ER) | payer OTHER ==
[2020-11-06 22:34] VITALS: BP 173/93; PULSE 92; RESP 20; TEMP 98.1
--- NOTE | 2020-11-06 23:00 | ED ---
Psych HPI - General Chief Complaint: Psychiatric Symptoms Stated Complaint: Mental Health Time Seen by Provider: 11/06/20 22:36 Source: patient Mode of arrival: ambulatory - History of Present Illness Initial Comments: Patient is a 35-year-old man who presents with complaint that she is having racing thoughts and depression in relation to a number of life stresses. The patient states that symptoms have been seeming to be worse for about a week or so. He denies clarice suicidal ideation, but states he is having difficulty sleeping and he is having racing thoughts. MD Complaint: feels depressed Onset/Timin -: week(s) Associated Psychiatric Symptoms: depression, racing thoughts History of same: Yes Quality: changing over time Improves With: none Worsens With: other Context: significant life stressor Associated Symptoms: insomnia - Related Data Home Medications Medication Instructions Recorded Confirmed Escitalopram Oxalate [Lexapro] 10 mg PO DAILY 09/27/20 09/27/20 Allergies Allergy/AdvReac Type Severity Reaction Status Date / Time tramadol Allergy SEIZURE Verified 11/06/20 22:33 Review of Systems ROS Statement: Those systems with pertinent positive or pertinent negative responses have been documented in the HPI. ROS Other: All systems not noted in ROS Statement are negative. Constitutional: Denies: fever, chills Respiratory: Denies: cough, dyspnea Cardiovascular: Denies: chest pain, palpitations, syncope Gastrointestinal: Denies: abdominal pain, nausea, vomiting Genitourinary: Denies: dysuria, hematuria Musculoskeletal: Denies: back pain Skin: Denies: rash Neurological: Denies: headache, weakness, numbness Psychiatric: Reports: anxiety, depression. Denies: auditory hallucinations, visual hallucinations, homicidal thoughts, suicidal thoughts Past Medical History Past Medical History: Asthma, GERD/Reflux Additional Past Medical History / Comment(s): FRACTURE OF LEFT FOOT History of Any Multi-Drug Resistant Organisms: None Reported Past Surgical History: Orthopedic Surgery Additional Past Surgical History / Comment(s): Right ACL, left foot, egd for "food stuck" Past Anesthesia/Blood Transfusion Reactions: No Reported Reaction Past Psychological History: Anxiety, Depression Smoking Status: Current every day smoker Past Alcohol Use History: None Reported Past Drug Use History: Marijuana, Methamphetamine, Opiates - Past Family History Mother Family Medical History: No Reported History General Exam Limitations: no limitations General appearance: alert, in no apparent distress Head exam: Present: atraumatic, normocephalic Eye exam: Present: normal appearance. Absent: scleral icterus, conjunctival injection ENT exam: Present: normal oropharynx Neck exam: Present: normal inspection Respiratory exam: Present: normal lung sounds bilaterally. Absent: respiratory distress, wheezes, rales, rhonchi, stridor Cardiovascular Exam: Present: regular rate, normal rhythm, normal heart sounds. Absent: systolic murmur, diastolic murmur, rubs, gallop GI/Abdominal exam: Present: soft. Absent: distended, tenderness, guarding, rebound, rigid, mass Extremities exam: Present: normal inspection, normal capillary refill. Absent: pedal edema, calf tenderness Back exam: Present: normal inspection. Absent: CVA tenderness (R), CVA tenderness (L) Neurological exam: Present: alert, normal gait Psychiatric exam: Present: anxious. Absent: depressed, agitated, flat affect, manic, homicidal ideation, suicidal ideation Skin exam: Present: warm, dry, intact, normal color. Absent: rash Course Vital Signs 11/06/20 22:29 Temperature 98.1 F Pulse Rate 92 Respiratory 20 Rate Blood Pressure 173/93 O2 Sat by Pulse 97 Oximetry Medical Decision Making - Lab Data Lab Results 11/06/20 Range/Units 23:12 Urine Opiates Screen Not Detected (NotDetected) Ur Oxycodone Screen Not Detected (NotDetected) Urine Methadone Screen Not Detected (NotDetected) Ur Propoxyphene Screen Not Detected (NotDetected) Ur Barbiturates Screen Not Detected (NotDetected) U Tricyclic Antidepress Not Detected (NotDetected) Ur Phencyclidine Scrn Not Detected (NotDetected) Ur Amphetamines Screen Detected H (NotDetected) U Methamphetamines Scrn Detected H (NotDetected) U Benzodiazepines Scrn Not Detected (NotDetected) Urine Cocaine Screen Not Detected (NotDetected) U Marijuana (THC) Screen Not Detected (NotDetected) Disposition Clinical Impression: Mood disorder Disposition: HOME SELF-CARE Condition: Good Instructions (If sedation given, give patient instructions): Mood Disorders (ED) Is patient prescribed a controlled substance at d/c from ED?: No Referrals: Eder Ruggiero MD [Primary Care Provider] - 1-2 days
[2020-11-06 23:27] LABS: Amphetamine Screen,Urine Detected (NotDetected); Barbiturate Screen,Urine Not Detected (NotDetected); Benzodiazepines Screen,Urine Not Detected (NotDetected); Cocaine Screen,Urine Not Detected (NotDetected); Methadone Screen, Urine Not Detected (NotDetected); Opiate Screen,Urine Not Detected (NotDetected); Oxycodone Screen, Urine Not Detected (NotDetected); Phencyclidine Screen,Urine Not Detected (NotDetected); Tricyclic Antidepressant,Urine Not Detected (NotDetected); Urn Cannabinoid Scrn Not Detected (NotDetected)
== END 2020-11-07 01:22 | disposition home or self-care (01) ==
LOC: EC 22:28
DX: F39 Unspecified mood [affective] disorder (principal); F41.9 Anxiety disorder, unspecified; F32.9 Major depressive disorder, single episode, unspecified; F17.200 Nicotine dependence, unspecified, uncomplicated; Z79.899 Other long term (current) drug therapy; Z88.6 Allergy status to analgesic agent
CPT/HCPCS: 80306; 82075; 99284

== ENCOUNTER 2020-11-08 14:00 | Emergency (ER) | payer OTHER ==
[2020-11-08 14:12] VITALS: BP 130/100; PULSE 85; RESP 18; TEMP 98
--- NOTE | 2020-11-08 15:55 | ED ---
Psych HPI - General Chief Complaint: Psychiatric Symptoms Stated Complaint: Mental health Time Seen by Provider: 11/08/20 14:13 Source: patient, RN notes reviewed Mode of arrival: ambulatory Limitations: no limitations - History of Present Illness Initial Comments: 35 year old male presents emergency Department for psychiatric evaluation patient states he was just here recently for evaluation. Patient states his anxiety is worse. Patient does have a history of methamphetamine and marijuana abuse. Patient states that he has been sober for 90 days. Patient states that he's had a lateral lead changes recently which making his anxiety bother him. Patient denies being suicidal or homicidal. Patient offers no other complaints. - Related Data Home Medications Medication Instructions Recorded Confirmed Escitalopram Oxalate [Lexapro] 10 mg PO DAILY 09/27/20 09/27/20 Allergies Allergy/AdvReac Type Severity Reaction Status Date / Time tramadol Allergy SEIZURE Verified 11/08/20 14:12 Review of Systems ROS Statement: Those systems with pertinent positive or pertinent negative responses have been documented in the HPI. ROS Other: All systems not noted in ROS Statement are negative. Past Medical History Past Medical History: Asthma, GERD/Reflux Additional Past Medical History / Comment(s): FRACTURE OF LEFT FOOT History of Any Multi-Drug Resistant Organisms: None Reported Past Surgical History: Orthopedic Surgery Additional Past Surgical History / Comment(s): Right ACL, left foot, egd for "food stuck" Past Anesthesia/Blood Transfusion Reactions: No Reported Reaction Past Psychological History: ADD/ADHD, Anxiety, Depression Smoking Status: Current every day smoker Past Alcohol Use History: None Reported Past Drug Use History: Marijuana, Methamphetamine, Opiates - Past Family History Mother Family Medical History: No Reported History General Exam Limitations: no limitations General appearance: alert, in no apparent distress Head exam: Present: atraumatic, normocephalic, normal inspection Eye exam: Present: normal appearance, PERRL, EOMI. Absent: scleral icterus, conjunctival injection, periorbital swelling ENT exam: Present: mucous membranes moist. Absent: normal oropharynx (Poor dentition) Neck exam: Present: normal inspection, full ROM. Absent: tenderness, meningismus, lymphadenopathy Respiratory exam: Present: normal lung sounds bilaterally. Absent: respiratory distress, wheezes, rales, rhonchi, stridor Cardiovascular Exam: Present: regular rate, normal rhythm, normal heart sounds. Absent: systolic murmur, diastolic murmur, rubs, gallop, clicks Neurological exam: Present: alert Skin exam: Present: warm, dry, intact, normal color, rash Course Vital Signs 11/08/20 14:08 Temperature 98 F Pulse Rate 85 Respiratory 18 Rate Blood Pressure 130/100 O2 Sat by Pulse 97 Oximetry Medical Decision Making - Medical Decision Making Patient evaluated by [facility] EPS case discussed with psychiatrist patient will be discharged in stable condition return parameters were discussed. Patient signs safety contact, patient did contact axis while in the emergency department. Disposition Clinical Impression: Acute anxiety Disposition: HOME SELF-CARE Condition: Stable Instructions (If sedation given, give patient instructions): Generalized Anxiety Disorder (ED) Additional Instructions: Please return to the Emergency Department if symptoms worsen or any other concerns. Is patient prescribed a controlled substance at d/c from ED?: No Referrals: Eder Ruggiero MD [Primary Care Provider] - 1-2 days Time of Disposition: 15:54
[2020-11-08 16:06] LABS: Amphetamine Screen,Urine Detected (NotDetected); Barbiturate Screen,Urine Not Detected (NotDetected); Benzodiazepines Screen,Urine Not Detected (NotDetected); Cocaine Screen,Urine Not Detected (NotDetected); Methadone Screen, Urine Not Detected (NotDetected); Opiate Screen,Urine Not Detected (NotDetected); Oxycodone Screen, Urine Not Detected (NotDetected); Phencyclidine Screen,Urine Not Detected (NotDetected); Tricyclic Antidepressant,Urine Not Detected (NotDetected); Urn Cannabinoid Scrn Not Detected (NotDetected)
== END 2020-11-08 16:47 | disposition home or self-care (01) ==
LOC: EC 14:00
DX: F41.9 Anxiety disorder, unspecified (principal); F17.200 Nicotine dependence, unspecified, uncomplicated; F32.9 Major depressive disorder, single episode, unspecified; F90.9 Attention-deficit hyperactivity disorder, unspecified type; Z79.899 Other long term (current) drug therapy; Z88.6 Allergy status to analgesic agent
CPT/HCPCS: 80306; 82075; 99284

== ENCOUNTER 2020-11-14 14:53 | Emergency (ER) | payer OTHER ==
[2020-11-14 15:00] VITALS: BP 138/77; TEMP 98
[2020-11-14] MEDS ORDERED: SODIUM CHLORIDE 0.9% 1,000 ML IV STA (15:10)
[2020-11-14] MEDS ORDERED: IPRATROPIUM-ALBUTEROL 3 ML NEB INHALATION STA (15:10)
[2020-11-14 15:27] VITALS: RESP 16
--- NOTE | 2020-11-14 15:27 | ED ---
General Adult HPI - General Chief complaint: Shortness of Breath Stated complaint: Asthma Attack Source: patient, RN notes reviewed Mode of arrival: ambulatory Limitations: no limitations - History of Present Illness Initial comments: Patient is a 35-year-old male that presents to emergency department complaining of an asthma attack. He noted that he ran out of his metered-dose inhaler today and then had an asthma attack about 30 minutes prior to arrival. He noted he was also a little bit anxious due to not having his inhaler. He did report that he recently found out he might have lung cancer is following up with his doctor for that. He was in no apparent distress or discomfort while sitting in bed during the exam. He denied any chest pain headache nausea vomiting diarrhea constipation fever fatigue chills weakness numbness tingling. - Related Data Home Medications Medication Instructions Recorded Confirmed Escitalopram Oxalate [Lexapro] 10 mg PO DAILY 09/27/20 09/27/20 Allergies Allergy/AdvReac Type Severity Reaction Status Date / Time tramadol Allergy SEIZURE Verified 11/14/20 15:00 Review of Systems ROS Statement: Those systems with pertinent positive or pertinent negative responses have been documented in the HPI. ROS Other: All systems not noted in ROS Statement are negative. Past Medical History Past Medical History: Asthma, GERD/Reflux Additional Past Medical History / Comment(s): FRACTURE OF LEFT FOOT History of Any Multi-Drug Resistant Organisms: None Reported Past Surgical History: Orthopedic Surgery Additional Past Surgical History / Comment(s): Right ACL, left foot, egd for "food stuck" Past Anesthesia/Blood Transfusion Reactions: No Reported Reaction Past Psychological History: ADD/ADHD, Anxiety, Depression Smoking Status: Current every day smoker Past Alcohol Use History: None Reported Past Drug Use History: Marijuana, Methamphetamine, Opiates - Past Family History Mother Family Medical History: No Reported History General Exam Limitations: no limitations General appearance: alert, in no apparent distress Head exam: Present: atraumatic, normocephalic, normal inspection Eye exam: Present: normal appearance, PERRL, EOMI. Absent: scleral icterus, c onjunctival injection, periorbital swelling ENT exam: Present: normal exam, mucous membranes moist Neck exam: Present: normal inspection. Absent: tenderness, meningismus, lymphadenopathy Respiratory exam: Present: normal lung sounds bilaterally. Absent: respiratory distress, wheezes, rales, rhonchi, stridor Cardiovascular Exam: Present: regular rate, normal rhythm, normal heart sounds. Absent: systolic murmur, diastolic murmur, rubs, gallop, clicks Back exam: Present: normal inspection Neurological exam: Present: alert, oriented X3, CN II-XII intact Psychiatric exam: Present: normal affect, normal mood Skin exam: Present: warm, dry, intact, normal color. Absent: rash Course Vital Signs 11/14/20 11/14/20 11/14/20 14:59 15:26 15:51 Temperature 98 F Pulse Rate 122 H 80 Respiratory 24 16 16 Rate Blood Pressure 138/77 O2 Sat by Pulse 97 Oximetry 11/14/20 15:58 Temperature Pulse Rate 80 Respiratory 16 Rate Blood Pressure O2 Sat by Pulse Oximetry Medical Decision Making - Medical Decision Making 35-year-old male complaining of asthma attack. DuoNeb, 1 L normal saline ordered due to patient appeared to be slightly dry/dehydrated. - Radiology Data Radiology results: report reviewed, image reviewed Chest x-ray: Normal chest no cardiopulmonary process. Disposition Clinical Impression: Asthma, Acute anxiety Disposition: HOME SELF-CARE Condition: Stable Instructions (If sedation given, give patient instructions): Asthma (ED) Additional Instructions: Please return to the Emergency Department if symptoms worsen or any other concerns. Follow-up with primary care 1-2 days, get refill on meter dose inhaler. Continue at home medications as prescribed Avoid any asthma inducing activities or strenuous activity. Is patient prescribed a controlled substance at d/c from ED?: No Referrals: Eder Ruggiero MD [Primary Care Provider] - 1-2 days Time of Disposition: 16:10
[2020-11-14 15:53] VITALS: PULSE 80
--- NOTE | 2020-11-14 16:14 | XR ---
EXAMINATION TYPE: XR chest 2V DATE OF EXAM: 11/14/2020 COMPARISON: NONE HISTORY: Short of breath TECHNIQUE: FINDINGS: Heart and mediastinum are normal. Lungs are clear. Diaphragm is normal. Bony thorax appears normal. IMPRESSION: Normal chest.
== END 2020-11-14 16:20 | disposition home or self-care (01) ==
LOC: EC 14:53
DX: J45.909 Unspecified asthma, uncomplicated (principal); F41.9 Anxiety disorder, unspecified; F32.9 Major depressive disorder, single episode, unspecified; K21.9 Gastro-esophageal reflux disease without esophagitis; F17.200 Nicotine dependence, unspecified, uncomplicated; Z88.5 Allergy status to narcotic agent; Z88.8 Allergy status to other drugs, medicaments and biological substances
CPT/HCPCS: 71046; 94640; 99285

== ENCOUNTER 2020-11-17 19:21 | Emergency (ER) | payer OTHER ==
[2020-11-17] MEDS ORDERED: NICOTINE POLACRILEX 2 MG GUM BUCCAL PRN (20:21)
[2020-11-17] MEDS ORDERED: LORazepam 1 MG TAB PO STA (20:40)
--- NOTE | 2020-11-17 22:03 | ED ---
Psych HPI <PrashantCaesar cobian - Last Filed: 11/18/20 00:45> - General Source: patient, police Mode of arrival: ambulatory <Margarita Cantrell - Last Filed: 11/21/20 13:27> - General Chief Complaint: Psychiatric Symptoms Stated Complaint: Petition Time Seen by Provider: 11/17/20 19:39 - History of Present Illness Initial Comments: Patient is a 35-year-old male past medical history of asthma and polysubstance abuse who presents to the emergency department accompanied by [place] [employer]. Patient reports that he is currently staying at the [facility]. He reports to multiple life stressors which have caused him to reach a breaking point. Reports that he had anxiety attack at his facility. Made some comments in regards that he was going to harm himself. He states that he was making them without serious intent. He was given the phone number to the crisis hotline and did call the crisis hotline. Because of the statements the [facility] did call police to escort him to our hospital. He denies homicidal ideations. No current alcohol use. Does admit to polysubstance abuse and did use 2 days ago. Currently denies suicidal ideations. No hallucinations. Denies any additional symptoms include fevers, chills, nausea, vomiting. No other alleviating, precipitating or modifying factors (Margarita Cantrell) - Related Data Home Medications Medication Instructions Recorded Confirmed Escitalopram [Lexapro] 20 mg PO DAILY 11/17/20 11/17/20 Allergies Allergy/AdvReac Type Severity Reaction Status Date / Time tramadol Allergy SEIZURE Verified 11/17/20 19:32 Review of Systems ROS Other: All systems not noted in ROS Statement are negative. <Caesar Mercado - Last Filed: 11/18/20 00:45> ROS Other: All systems not noted in ROS Statement are negative. <Margarita Cantrell - Last Filed: 11/21/20 13:27> ROS Statement: Those systems with pertinent positive or pertinent negative responses have been documented in the HPI. Past Medical History Past Medical History: Asthma, GERD/Reflux Additional Past Medical History / Comment(s): FRACTURE OF LEFT FOOT History of Any Multi-Drug Resistant Organisms: None Reported Past Surgical History: Orthopedic Surgery Additional Past Surgical History / Comment(s): Right ACL, left foot, egd for "food stuck" Past Anesthesia/Blood Transfusion Reactions: No Reported Reaction Past Psychological History: ADD/ADHD, Anxiety, Depression Smoking Status: Current every day smoker Past Alcohol Use History: None Reported Past Drug Use History: Marijuana, Methamphetamine, Opiates - Past Family History Mother Family Medical History: No Reported History <Margarita Cantrell Last Filed: 11/21/20 13:27> General Exam Limitations: no limitations General appearance: alert, in no apparent distress Head exam: Present: atraumatic, normocephalic, normal inspection Eye exam: Present: normal appearance, PERRL, EOMI. Absent: scleral icterus, conjunctival injection, periorbital swelling ENT exam: Present: normal exam, mucous membranes moist Neck exam: Present: normal inspection. Absent: tenderness, meningismus, lymphadenopathy Respiratory exam: Present: normal lung sounds bilaterally. Absent: respiratory distress, wheezes, rales, rhonchi, stridor Cardiovascular Exam: Present: regular rate, normal rhythm, normal heart sounds. Absent: systolic murmur, diastolic murmur, rubs, gallop, clicks GI/Abdominal exam: Present: soft, normal bowel sounds. Absent: distended, tenderness, guarding, rebound, rigid Extremities exam: Present: normal inspection, full ROM, normal capillary refill. Absent: tenderness, pedal edema, joint swelling, calf tenderness Back exam: Present: normal inspection Neurological exam: Present: alert, oriented X3, CN II-XII intact Psychiatric exam: Present: anxious Skin exam: Present: warm, dry, intact, normal color. Absent: rash <Margarita Cantrell - Last Filed: 11/21/20 13:27> Course Vital Signs 11/17/20 11/18/20 19:29 02:02 Temperature 98.7 F 97.6 F Pulse Rate 93 59 L Respiratory 17 18 Rate Blood Pressure 139/85 126/71 O2 Sat by Pulse 96 98 Oximetry Medical Decision Making <Margarita Cantrell Last Filed: 11/21/20 13:27> - Medical Decision Making Upon arrival patient was placed into room 14. A thorough history and physical exam was performed. Patient is given 2 mg Ativan for his tremulousness and agitation. Also requesting nicotine gum. He did request a urine sample. Patient is not currently intoxicated. He is ready for EPS evaluation at this time. We are currently awaiting the recommendations. Petition currently on chart. (Margarita Cantrell) - Lab Data Lab Results 11/18/20 Range/Units 00:58 Urine Opiates Screen Detected H (NotDetected) Ur Oxycodone Screen Not Detected (NotDetected) Urine Methadone Screen Not Detected (NotDetected) Ur Propoxyphene Screen Not Detected (NotDetected) Ur Barbiturates Screen Not Detected (NotDetected) U Tricyclic Antidepress Not Detected (NotDetected) Ur Phencyclidine Scrn Not Detected (NotDetected) Ur Amphetamines Screen Detected H (NotDetected) U Methamphetamines Scrn Detected H (NotDetected) U Benzodiazepines Scrn Not Detected (NotDetected) Urine Cocaine Screen Not Detected (NotDetected) U Marijuana (THC) Screen Not Detected (NotDetected) Disposition Is patient prescribed a controlled substance at d/c from ED?: No <Caesar Mercado - Last Filed: 11/18/20 00:45> <Margarita Cantrell - Last Filed: 11/21/20 13:27> Clinical Impression: Mood disorder Disposition: HOME SELF-CARE Condition: Good Instructions (If sedation given, give patient instructions): Mood Disorders (ED) Referrals: Eder Ruggiero MD [Primary Care Provider] - 1-2 days
[2020-11-18 01:25] LABS: Amphetamine Screen,Urine Detected (NotDetected); Barbiturate Screen,Urine Not Detected (NotDetected); Benzodiazepines Screen,Urine Not Detected (NotDetected); Cocaine Screen,Urine Not Detected (NotDetected); Methadone Screen, Urine Not Detected (NotDetected); Opiate Screen,Urine Detected (NotDetected); Oxycodone Screen, Urine Not Detected (NotDetected); Phencyclidine Screen,Urine Not Detected (NotDetected); Tricyclic Antidepressant,Urine Not Detected (NotDetected); Urn Cannabinoid Scrn Not Detected (NotDetected)
[2020-11-18 02:03] VITALS: BP 126/71; PULSE 59; RESP 18; TEMP 97.6
== END 2020-11-18 02:28 | disposition home or self-care (01) ==
LOC: EC 19:21
DX: F39 Unspecified mood [affective] disorder (principal); F41.9 Anxiety disorder, unspecified; F32.9 Major depressive disorder, single episode, unspecified; F90.9 Attention-deficit hyperactivity disorder, unspecified type; F17.200 Nicotine dependence, unspecified, uncomplicated; Z79.899 Other long term (current) drug therapy; Z88.6 Allergy status to analgesic agent
CPT/HCPCS: 80306; 82075; 99284

== ENCOUNTER 2020-12-03 11:39 | Emergency (ER) | payer OTHER ==
[2020-12-03 11:48] VITALS: BP 127/84; PULSE 68; RESP 18; TEMP 97.4
[2020-12-03] MEDS ORDERED: IBUPROFEN 600 MG TAB PO STA (12:08)
--- NOTE | 2020-12-03 12:13 | ED ---
General Adult HPI - General Chief complaint: Burn/Smoke Inhalation Stated complaint: burn Time Seen by Provider: 12/03/20 11:49 Source: patient, RN notes reviewed Mode of arrival: ambulatory Limitations: no limitations - History of Present Illness Initial comments: 35-year-old male presents emergency Department from shelter chief complaint of burn. 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 Patient states that extends to close nausea and a burn to his neck region. He states he had a mask on there was no oral or inhalation injury. Patient states his happened a few hours ago his tetanus is up-to-date - Related Data Home Medications Medication Instructions Recorded Confirmed Escitalopram [Lexapro] 20 mg PO DAILY 11/17/20 11/17/20 Allergies Allergy/AdvReac Type Severity Reaction Status Date / Time tramadol Allergy SEIZURE Verified 12/03/20 11:48 Review of Systems ROS Statement: Those systems with pertinent positive or pertinent negative responses have been documented in the HPI. ROS Other: All systems not noted in ROS Statement are negative. Past Medical History Past Medical History: Asthma, GERD/Reflux Additional Past Medical History / Comment(s): FRACTURE OF LEFT FOOT History of Any Multi-Drug Resistant Organisms: None Reported Past Surgical History: Orthopedic Surgery Additional Past Surgical History / Comment(s): Right ACL, left foot, egd for "food stuck" Past Anesthesia/Blood Transfusion Reactions: No Reported Reaction Past Psychological History: ADD/ADHD, Anxiety, Depression Smoking Status: Current every day smoker Past Alcohol Use History: None Reported Past Drug Use History: Marijuana, Methamphetamine, Opiates - Past Family History Mother Family Medical History: No Reported History General Exam Limitations: no limitations General appearance: alert, in no apparent distress Head exam: Present: atraumatic, normocephalic, normal inspection Eye exam: Present: normal appearance, PERRL, EOMI. Absent: scleral icterus, conjunctival injection, periorbital swelling ENT exam: Present: mucous membranes moist, TM's normal bilaterally, normal external ear exam. Absent: normal oropharynx (Poor dentition no lesions or sores no syed noted no swelling) Neck exam: Present: full ROM. Absent: normal inspection (There is area first- degree burn on the anterior surface is a small second-degree open burn in the midline), tenderness, meningismus, lymphadenopathy Respiratory exam: Present: normal lung sounds bilaterally. Absent: respiratory distress, wheezes, rales, rhonchi, stridor Cardiovascular Exam: Present: regular rate, normal rhythm, normal heart sounds. Absent: systolic murmur, diastolic murmur, rubs, gallop, clicks Neurological exam: Present: alert, oriented X3 Course Vital Signs 12/03/20 11:44 Temperature 97.4 F L Pulse Rate 68 Respiratory 18 Rate Blood Pressure 127/84 O2 Sat by Pulse 97 Oximetry Medical Decision Making - Medical Decision Making Patient was given Silvadene cream. Patient we discharged stable condition return parameters were discussed. Disposition Clinical Impression: First degree burn of neck, Second degree burn of neck Disposition: HOME SELF-CARE Condition: Stable Instructions (If sedation given, give patient instructions): Second Degree Burn (ED) Additional Instructions: Please return to the Emergency Department if symptoms worsen or any other concerns. Is patient prescribed a controlled substance at d/c from ED?: No Referrals: Eder Ruggiero MD [Primary Care Provider] - 1-2 days Time of Disposition: 12:12
== END 2020-12-03 12:50 | disposition home or self-care (01) ==
LOC: EC 11:39
DX: T20.27XA Burn of second degree of neck, initial encounter (principal); J45.909 Unspecified asthma, uncomplicated; F32.9 Major depressive disorder, single episode, unspecified; F17.200 Nicotine dependence, unspecified, uncomplicated; F12.90 Cannabis use, unspecified, uncomplicated; X13.1XXA Other contact with steam and other hot vapors, initial encounter; Y92.090 Kitchen in other non-institutional residence as the place of occurrence of the external cause
CPT/HCPCS: 16020; 99283

== ENCOUNTER 2023-05-07 01:12 | Emergency (ER) | payer BC, OTHER ==
[2023-05-07 01:25] VITALS: TEMP 98.7
[2023-05-07 01:26] VITALS: BP 144/100
[2023-05-07] MEDS ORDERED: NALOXONE 0.4 MG/ML 1 ML VIAL IM STA ×2 (01:43→01:54)
[2023-05-07] MEDS ORDERED: ONDANSETRON 4 MG/2 ML VIAL IM STA (01:43)
[2023-05-07] MEDS ORDERED: NALOXONE 0.4 MG/ML 1 ML VIAL SQ STA (01:49)
[2023-05-07 01:57] VITALS: RESP 17
[2023-05-07] MEDS ORDERED: NALOXONE 1 MG/ML 2 ML SYRINGE IM ONE (02:00)
[2023-05-07 02:01] VITALS: PULSE 102
--- NOTE | 2023-05-07 02:04 | ED ---
Overdose HPI - General Chief Complaint: Overdose Stated Complaint: Overdose Time Seen by Provider: 05/07/23 01:29 Source: patient Mode of arrival: EMS Limitations: no limitations - History of Present Illness Initial Comments: 37-year-old male presenting after a bystander called EMS when the patient appeared to be passed out outside of [facility]. Patient tells me that he snorted what he thought was a Vicodin this evening, but he states he is worried it may not have been. Room patient is repeatedly falling asleep while answering my questions. He is being monitored on continuous pulse oximetry remaining above 94%. He states "I just feel very disappointed to myself. He denies any chest pain or shortness of breath. No nausea, vomiting, or abdominal pain. I am not told EMS distributed any Narcan. - Related Data Home Medications Medication Instructions Recorded Confirmed Escitalopram [Lexapro] 20 mg PO DAILY 11/17/20 11/17/20 Allergies Allergy/AdvReac Type Severity Reaction Status Date / Time tramadol Allergy SEIZURE Verified 12/03/20 11:48 Review of Systems ROS Statement: Those systems with pertinent positive or pertinent negative responses have been documented in the HPI. ROS Other: All systems not noted in ROS Statement are negative. Past Medical History Past Medical History: Asthma, GERD/Reflux Additional Past Medical History / Comment(s): FRACTURE OF LEFT FOOT History of Any Multi-Drug Resistant Organisms: None Reported Past Surgical History: Orthopedic Surgery Additional Past Surgical History / Comment(s): Right ACL, left foot, egd for "food stuck" Past Anesthesia/Blood Transfusion Reactions: No Reported Reaction Past Psychological History: ADD/ADHD, Anxiety, Depression Smoking Status: Current every day smoker Past Alcohol Use History: None Reported Past Drug Use History: Marijuana, Methamphetamine, Opiates - Past Family History Mother Family Medical History: No Reported History General Exam Limitations: no limitations General appearance: alert, in no apparent distress Head exam: Present: atraumatic, normocephalic, normal inspection Expanded Pupils: Miosissis: Bilateral Neck exam: Present: normal inspection, full ROM Respiratory exam: Present: normal lung sounds bilaterally. Absent: respiratory distress, wheezes, rales, rhonchi, stridor Cardiovascular Exam: Present: regular rate, normal rhythm, normal heart sounds. Absent: systolic murmur, diastolic murmur, rubs, gallop, clicks Neurological exam: Present: alert, altered Skin exam: Present: warm, dry, intact, normal color. Absent: rash Course Vital Signs 05/07/23 05/07/23 05/07/23 01:18 01:56 02:01 Temperature 98.7 F Pulse Rate 87 102 H Respiratory 18 17 Rate Blood Pressure 144/100 O2 Sat by Pulse 95 Oximetry Medical Decision Making - Medical Decision Making Was pt. sent in by a medical professional or institution (, PA, SOLUTION DEVELOPER, urgent care, hospital, or [place] [facility] facility...) When possible be specific @ -No Did you speak to anyone other than the patient for history (EMS, parent, family, police, friend...)? What history was obtained from this source @ -No Did you review nursing and triage notes (agree or disagree)? Why? @ -I reviewed and agree with nursing and triage notes Were old charts reviewed (outside hosp., previous admission, EMS record, old EKG, old radiological studies, urgent care reports/EKG's, [place] [facility] care facility records)? Report findings @ -No old charts were reviewed Differential Diagnosis (chest pain, altered mental status, abdominal pain women, abdominal pain men, vaginal bleeding, weakness, fever, dyspnea, syncope, headache, dizziness, GI bleed, back pain, seizure, CVA, palpatations, mental health, musculoskeletal)? @ -MDM Differential Altered Mental Status: Hypoglycemia, DKA, hypercapnia, ETOH, overdose, CO poisoning, trauma, myxedema coma, HTN encephalopathy, infection, encephalitis, psychosis, intercranial hemorrhage, hepatic encephalopathy, meningitis, CVA this is not meant to be an all-inclusive list EKG interpreted by me (3pts min.). @ -As above X-rays interpreted by me (1pt min.). @ -None done CT interpreted by me (1pt min.). @ -None done U/S interpreted by me (1pt. min.). @ -None done What testing was considered but not performed or refused? (CT, X-rays, U/S, labs)? Why? @ -None What meds were considered but not given or refused? Why? @ -None Did you discuss the management of the patient with other professionals (professionals i.e. , SID, SOLUTION DEVELOPER, lab, RT, psych nurse, social media assistant, hard candy spinner, teacher, surface to air weapons officer, case assistant)? Give summary @ -No Was smoking cessation discussed for >3mins.? @ -No Was critical care preformed (if so, how long)? @ -No Were there social determinants of health that impacted care today? How? (Homelessness, low income, unemployed, alcoholism, drug addiction, transportation, low edu. Level, literacy, decrease access to med. care, fci, rehab)? @ -Drug use Was there de-escalation of care discussed even if they declined (Discuss DNR or withdrawal of care, Hospice)? DNR status @ -No What co-morbidities impacted this encounter? (DM, HTN, Smoking, COPD, CAD, Cancer, CVA, ARF, Chemo, Hep., AIDS, mental health diagnosis, sleep apnea, morbid obesity)? @ -None Was patient admitted / discharged? Hospital course, mention meds given and route, prescriptions, significant lab abnormalities, going to OR and other pertinent info. @ -37-year-old male presenting by EMS after being found apparently passed out in front of [facility]. Patient tells me that he snorted a Vicodin tonight. While obtaining the history the patient repeatedly falls asleep. Oxygen saturation remains above 94%. Patient is given 0.4 mg Narcan IM as well as 4 mg of Zofran. Urine drug screen is ordered. I'm told by nursing staff that the patient refused to stay and eloped after receiving Narcan. My attending is Dr. Case. Undiagnosed new problem with uncertain prognosis? @ -No Drug Therapy requiring intensive monitoring for toxicity (Heparin, Nitro, Insulin, Cardizem)? @ -No Were any procedures done? @ -No Diagnosis/symptom? @ -Drug intoxication Acute, or Chronic, or Acute on Chronic? @ -Acute Uncomplicated (without systemic symptoms) or Complicated (systemic symptoms)? @ -Uncomplicated Side effects of treatment? @ -No Exacerbation, Progression, or Severe Exacerbation? @ -No Poses a threat to life or bodily function? How? (Chest pain, [place], [place], pneumonia, PE, COPD, DKA, ARF, appy, cholecystitis, CVA, Diverticulitis, Homicidal, Suicidal, threat to staff... and all critical care pts) @ -Yes, patient eloped before proper observation, may still be at risk for respiratory depression Disposition Clinical Impression: Intoxication by drug Narrative: Patient eloped Disposition: LEFT AGAINST MEDICAL ADVICE Referrals: Eder Ruggiero MD [Primary Care Provider] - 1-2 days Time of Disposition: 02:17
== END 2023-05-07 02:19 | disposition left against medical advice (07) ==
LOC: EC 01:12
DX: T40.2X1A Poisoning by other opioids, accidental (unintentional), initial encounter (principal); J45.909 Unspecified asthma, uncomplicated; F41.9 Anxiety disorder, unspecified; F32.A Depression, unspecified; F17.200 Nicotine dependence, unspecified, uncomplicated; F12.90 Cannabis use, unspecified, uncomplicated; Z88.8 Allergy status to other drugs, medicaments and biological substances; Z79.899 Other long term (current) drug therapy; Z53.29 Procedure and treatment not carried out because of patient's decision for other reasons
CPT/HCPCS: 99284; 96372 ×2; J2310; J2405